=== PATIENT | male | born 1960 | race Caucasian/White ===

== ENCOUNTER 2017-10-06 09:42 | Inpatient (IN) | payer OTHER ==
[~2017-10-06] VITALS: Ht 2377 cm; Wt 61.7 kg
--- NOTE | ~2017-10-06 | PR ---
[place], [place] PROGRESS NOTE NAME: PORSHA WIN UNIT #: [id number] ROOM: 310 DOCTOR: AUGUSTUS CARRILLO MD BIRTHDATE: [birth year] DOS: 10/08/2017 CHIEF COMPLAINT: "Oh doctor, Thanks for stopping, I need to talk to the social director." SUMMARY OF THE VISIT: The patient was interviewed as he was resting quietly in bed. He did awake and engage with me in conversation that was appropriate. He reports that he slept much better last night with the meds were working for him as they had been previously. He did get up and have breakfast and is now resting again, stating that he is still experiencing ongoing auditory hallucinations, but they seem to be dissipating. He reports tolerating the medication well. MENTAL STATUS: He is alert and oriented. Mood does seem to be still somewhat depressed and he is preoccupied, but he is able to carry on a reasonable conversation. He is fairly bright and pleasant for the most part. There was no teena or hypomania. There was no gross psychosis in the sense that I did not see him responding to unforeseen others. Memory has mild gaps, but for the most part, he is intact. PLAN: I will go ahead and increase the Latuda from 80 mg at bedtime to 120 mg at bedtime, maintaining the other psychotropics, continue to engage in individual and rivera milieu activity with the plan to return to the least restrictive environment when stable. AUGUSTUS CARRILLO MD CM:PNTRANS 46 AUGUSTUS CARRILLO MD 10/08/172045 interface
--- NOTE | ~2017-10-06 | DS ---
[place], [place] DISCHARGE SUMMARY NAME: PORSHA WIN UNIT #: [id number] ROOM: 310 DOCTOR: AUGUSTUS CARRILLO MD BIRTHDATE: [birth year] DOS: 10/11/2017 CHIEF COMPLAINT: "The voices are just getting so bad for me, but I need to make certain someone gets on the computer Tuesday for me." HISTORY OF PRESENT ILLNESS: This is a 57-year-old black male who was sent from [facility] emergency room on an involuntary basis. He had been brought there because of increased psychosis that included auditory hallucinations and gross psychotic symptomatology. He did test positive for cocaine while at [facility] and was very agitated and labile there as well as being very disorganized in his thinking. Because he was so disjointed and fragmented, it was felt that an inpatient restabilization was warranted and he was sent to the [facility] for further crisis stabilization to rule out further organic factors, to engage in individual and rivera milieu activity, returning to the least restrictive environment when stable. PAST MEDICAL HISTORY: Remarkable for GERD, left ventricular hypertrophy, schizoaffective disorder, benzodiazepine abuse, cocaine abuse, nicotine abuse. SOCIAL HISTORY: The patient does not drink alcohol per his report. PAST MEDICAL HISTORY: Remarkable for multiple previous psychiatric admissions. He is followed at [facility]. STRENGTHS: He is ambulatory, good verbal skills and a supportive living environment. SUMMARY OF HOSPITAL COURSE: The patient was admitted to the unit where he had his Seroquel discontinued in lieu of Latuda 40 mg at bedtime, Remeron 15 mg at bedtime was added to help him sleep and combat the depressive symptomatology. Routine screening examination showed him to have a low vitamin D level of 17.5, so his vitamin D replacement 50,000 international units was ordered. Gradually, the Latuda dose was increased from 40 to 80 and then to 120. He did request that his temazepam be restarted, which was. With this combination of medicine, the patient improved greatly. He was sleeping through the night, engaging in ADLs, engaging in individual and group activities. He reported no side effects from the medications and voiced positive plans for the future. The patient was discharged then back home on October 11, to have followup with [facility]. MENTAL STATUS AT DISCHARGE: The patient is alert and oriented. Mood does seem to be strongly trending towards euthymia. Affect is more appropriate. There is no teena or hypomania. There is no suicidal, homicidal, or self-injurious behavior. Memory for the most part is intact. FINAL DIAGNOSIS: Schizoaffective disorder. PLAN: All of his prescriptions have been sent with him. He will have followup at [facility]. [place], [place] DISCHARGE SUMMARY NAME: PORSHA WIN UNIT #: [id number] ROOM: 310 DOCTOR: AUGUSTUS CARRILLO MD BIRTHDATE: [birth year] AUGUSTUS CARRILLO MD CM:DISCHARG [phone] AUGUSTUS CARRILLO MD 10/20/17 0817 interface
--- NOTE | ~2017-10-06 | PR ---
[place], [place] PROGRESS NOTE NAME: PORSHA WIN UNIT #: [id number] ROOM: 310 DOCTOR: CHAI MONROE DO BIRTHDATE: [birth year] DOS: 10/10/2017 CHIEF COMPLAINT: "I slept well." SUMMARY OF VISIT: The patient is a 57-year-old -Chinese male who was sent from [facility] to be admitted to the [facility] on involuntary basis. He was admitted due to increased auditory hallucinations and gross psychotic symptomology. Patient today was interviewed in the hallway. His speech was not as disorganized as compared to Tuesday10/07/2017. The patient has continued to show signs of anxiety and paranoia, particularly revolving around snack time. He has been noted to be experiencing auditory hallucinations. He does report improvement in his sleep and appetite, reports feeling better. He was able to get assistance with filing the required paperwork for his unemployment over the weekend. The patient continues to be pleasant and readily engages in conversation. MENTAL STATUS EXAMINATION: The patient is alert and oriented to self. Mood is trending towards euthymia. Affect is more appropriate. The patient continues to show signs of experiencing auditory hallucinations. Short and long-term memory are mostly intact. The patient is cooperative, however, he continues to have episodes of anxious overtones and paranoia. PLAN: 1. We have started the patient on Vistaril 25 mg t.i.d. 2. The patient yesterday was complaining of constipation. He complained of this again this morning. The patient was started on MiraLax 17 grams b.i.d. by the Internal hospitalist team. We will continue this treatment. 3. The patient signed the consent form in order to extend inpatient treatment as he was originally pink slipped to the [facility]. 4. Disposition. The patient is likely to be discharged either Tuesday10/11/2017 or Tuesday10/12/2017 depending on medical and psychiatric status at that time. Until then, we will continue his current psychotropic regimen and encourage the patient to engage in individual and word milieu activity, returning to the least restrictive environment when psychiatrically stable. Chai Austyn, DO [place], [place] PROGRESS NOTE NAME: QUIRINOPORSHA UNIT #: [id number] ROOM: 310 DOCTOR: CHAI MONROE DO BIRTHDATE: [birth year] AUGUSTUS CARRILLO MD CM:SANDRA [id number] CHAI MONROE DO 10/10/171926 interface
--- NOTE | ~2017-10-06 | PR ---
[place], [place] PROGRESS NOTE NAME: PORSHA WIN UNIT #: [id number] ROOM: 310 DOCTOR: AUGUSTUS ELKINS MD BIRTHDATE: [birth year] DOS: 10/09/2017 CHIEF COMPLAINT: "Oh Dr. Elkins, I am doing better. I just need someone to get on the computer for me." SUMMARY OF THE VISIT: The patient was interviewed as he sat eating his breakfast with peers. He stopped and engaged readily in conversation. He reports that he is sleeping better, eating better, and is feeling much better than he had upon admission. His biggest concern is being able to get on the computer to do his unemployment work. MENTAL STATUS: He is alert and oriented. Mood does seem to be strongly trending towards euthymia. Affect is more appropriate. There is no teena or hypomania. There are no gross psychotic symptoms. Short, intermediate, and long-term memory are relatively intact. PLAN: I will maintain his current psychotropic regimen, monitor and support, engage in individual and rivera milieu activity, returning to the least restrictive environment when stable. AUGUSTUS ELKINS MD CM:PNTRANS [id number] AUGUSTUS ELKINS MD 10/09/17 1252 interface
--- NOTE | ~2017-10-06 | WRIGHTHP ---
[place], [place] PATIENT HISTORY AND PHYSICAL EXAM NAME: PORSHA WIN UNIT #: [id number] ROOM: 310 DOCTOR: AUGUSTUS CARRILLO MD BIRTHDATE: [birth year] DOS: 10/07/2017 CHIEF COMPLAINT: "The voices were just getting so bad for me, but I need to make certain someone gets on the computer on Tuesday for me." SUMMARY OF THE VISIT: This is a 57-year-old black male who was sent from [facility] emergency room on an involuntary basis. He had been brought there because of increased auditory hallucinations and gross psychotic symptomatology. The patient tested positive for cocaine while at [facility] and was found to be very agitated and labile there and very disorganized. Because of his gross psychotic state, it was felt that the patient would benefit from an inpatient stay to re-stabilize on medication. PAST MEDICAL HISTORY: Remarkable for GERD, left ventricular hypertrophy and a long history of schizophrenia or schizoaffective disorder. He also has a history of benzodiazepine abuse, cocaine abuse, tobacco abuse. He does not drink alcohol. PAST PSYCHIATRIC HISTORY: Remarkable for multiple previous admissions as well as being followed at [facility] in [place] formally known as [facility]. STRENGTHS: He is ambulatory, has good verbal skills and a supportive environment to live in. MENTAL STATUS: He is alert and oriented with some time gaps, but overall pretty intact. He is rather hyper and very pressured in his speech, but interruptible. He does jump from topic to topic and repeats himself frequently. He does endorse positive hallucinations and some delusions. Memory for the most part is intact. DIAGNOSIS: Schizoaffective disorder. PLAN: I have discontinued his Seroquel that he reports having been on for years given the fact that he has been compliant and it was ineffective. I have started him on Latuda 40 mg at nighttime. I will increase this to 80 mg at bedtime. I will also add Remeron 15 mg at bedtime to help with the affect component and try to stimulate his appetite as well as aid sleep. He reports having chronic insomnia and reports at least a 3-year history of being on Restoril 30 mg at bedtime. I will go ahead and restart that. I may convert it ultimately to p.r.n. later if the Remeron is successful at aiding his sleep. Routine screening examination showed him to have a vitamin D level that is low at 17.5. I will replace with vitamin D 50,000 international units q. week. We will also order him Boost to supplement his nutritional status. Engage in individual and rivera milieu activity, returning then to the least restrictive environment when psychiatrically stable. [place], [place] PATIENT HISTORY AND PHYSICAL EXAM NAME: PORSHA WIN UNIT #: [id number] ROOM: 310 DOCTOR: AUGUSTUS CARRILLO MD BIRTHDATE: [birth year] AUGUSTUS CARRILLO MD CM:HISPHYS:PATIENT HISTORY AND PHYSICAL EXAMINATION [id number] AUGUSTUS CARRILLO MD 10/20/17 0821 interface
[2017-10-06] MEDS ORDERED: RESTORIL30 M1 PO (10:01)
[2017-10-06] MEDS ORDERED: SEROQUEL XR400 MG PO (10:01)
[2017-10-06] MEDS ORDERED: ACETAMINOPHEN325 M2 PO (10:53)
[2017-10-06 17:52] VITALS: BP 130/78
[2017-10-06 17:57] VITALS: BP 130/78
[2017-10-06 20:17] VITALS: BP 130/78
[2017-10-07 07:03] LABS: BASO % 0.7 % (0.0-1.0); EOS % 0.7 % (1.0-4.0); HEMATOCRIT 46.5 % (42.0-52.0); HEMOGLOBIN 15.9 g/dl (14.0-18.0); LYMPH # 1.7 10*3/uL (1.3-4.4); LYMPH % 38.5 % (27.0-41.0); MEAN CELL VOLUME 96.7 fl (80.0-94.0); MEAN CORPUSCULAR HGB 33.1 pg (27.0-31.0); MEAN CORPUSCULAR HGB CONC 34.2 g/dl (33.0-37.0); MEAN PLATELET VOLUME 9.9 fl (9.6-12.3); MONO # 0.6 10*3/uL (0.1-1.0); MONO % 14.2 % (3.0-9.0); NEUT % 45.7 % (47.0-73.0); PLATELET COUNT AUTOMATED 252 10*3/uL (130-400); RED BLOOD COUNT 4.81 10*6/uL (4.50-5.90); RED CELL DISTRI WIDTH 12.7 % (0-14.5); WHITE BLOOD COUNT 4.3 10*3/uL (4.8-10.8)
[2017-10-07 07:47] LABS: CHLORIDE 103 mmol/L (98-107); POTASSIUM 3.6 mmol/L (3.5-5.1); SODIUM 140 mmol/L (136-145)
[2017-10-07 07:51] VITALS: BP 121/67
[2017-10-07 08:02] LABS: ALBUMIN 4.1 gm/dl (3.1-4.5); ALKALINE PHOSPHATASE 41 U/L (45-117); BUN 14 mg/dl (7-24); CHOLESTEROL 131 mg/dL (<200); HDL CHOLESTEROL 67 mg/dl (40-60); LDL CHOLESTEROL 49 mg/dL (9-159); SGOT/AST 33 IU/L (3-35); SGPT/ALT 35 U/L (12-78); THYROID STIM HORMONE (HS) 0.978 uIU/ml (0.358-4.75); TOTAL PROTEIN 8.5 gm/dL (6.4-8.2); TRIGLYCERIDES 77 mg/dl (<150); VLDL CHOLESTEROL 15 mg/dL (6-40)
[2017-10-07 08:06] LABS: VITAMIN D, 25-HYDROXY 17.5 ng/mL (30-100)
[2017-10-07 20:04] VITALS: BP 120/78
[2017-10-08 08:03] VITALS: BP 115/65
[2017-10-08 20:00] VITALS: BP 109/70
[2017-10-09 07:52] VITALS: BP 109/64
[2017-10-09 20:00] VITALS: BP 108/67
[2017-10-10 07:33] VITALS: BP 103/65
[2017-10-10 20:02] VITALS: BP 102/64
[2017-10-11 07:38] VITALS: BP 110/68
[2017-10-11] MEDS ORDERED: LATU120T PO (08:51)
[2017-10-11] MEDS ORDERED: MIRTAZAPINE15 M2 PO (08:51)
[2017-10-11] MEDS ORDERED: HYDROXYZINE PAM25 M1 PO (08:51)
== END 2017-10-11 14:47 | disposition home or self-care (01) | DRG 885 ==
LOC: 3N 09:42
PROVIDERS: Psychiatry & Neurology Psychiatry
DX: F25.9 Schizoaffective disorder, unspecified (principal); F23 Brief psychotic disorder; F13.10 Sedative, hypnotic or anxiolytic abuse, uncomplicated; F14.10 Cocaine abuse, uncomplicated; K21.9 Gastro-esophageal reflux disease without esophagitis; F41.9 Anxiety disorder, unspecified; Z72.0 Tobacco use; Z79.899 Other long term (current) drug therapy

== ENCOUNTER 2017-11-10 08:32 | Inpatient (IN) | payer OTHER ==
[~2017-11-10] VITALS: Ht 185.4 cm; Wt 57.2 kg
--- NOTE | ~2017-11-10 | PR ---
[place], [place] PROGRESS NOTE NAME: PORSHA WIN UNIT #: [id number] ROOM: 314 DOCTOR: AUGUSTUS CARRILLO MD BIRTHDATE: [birth year] DOS: 11/12/2017 INTERVAL NOTE CHIEF COMPLAINT: "I slept because of the temazepam. I have a belly ache though." SUMMARY OF THE VISIT: The patient was resting quietly in his bed. He engaged readily in conversation. He does report he is feeling better with the new medicine adjustments and did sleep better. He is complaining that his belly hurts. I could not pin him down as to whether it was actually his stomach were more of band-like pain, given his history of polysubstance abuse. I am suspicious of possible pancreatitis, chronic in nature. MENTAL STATUS: He is alert and oriented. Mood does seem to be trending towards euthymia. Affect is more appropriate. There is no teena, hypomania, or gross psychosis. Memory is intact. PLAN: His vitamin B12 level is low normal at 287. So I will utilize vitamin B12 injection 1000 mcg IM monthly, vitamin D level is low at 21.6, so I will treat him with vitamin D 50,000 International Units weekly. For precautionary sake, I will check a serum amylase and lipase. Engage in individual and rivera milieu activity, returning to the least restrictive environment when stable. AUGUSTUS CARRILLO MD CM:PNTRANS [phone] AUGUSTUS CARRILLO MD 11/13/17 0203 interface
--- NOTE | ~2017-11-10 | WRIGHTHP ---
[place], [place] PATIENT HISTORY AND PHYSICAL EXAM NAME: PORSHA WIN UNIT #: [id number] ROOM: 314 DOCTOR: AUGUSTUS CARRILLO MD BIRTHDATE: [birth year] DOS: 11/11/2017 INITIAL PSYCHIATRIC EVALUATION CHIEF COMPLAINT: "The voices were telling me to hurt myself again." HISTORY OF PRESENT ILLNESS: This is a 57-year-old black male who was readmitted to the [facility]. He was sent here on an involuntary basis from [facility] Emergency Room. The patient had presented there acutely depressed and suicidal, stating that he is having command auditory hallucinations telling him to walk into traffic to kill himself. The patient has also relapsed on crack cocaine and has been abusing benzodiazepines. He reports poor sleep and appetite with a significant weight loss, marked anergia, anhedonia, hopeless and helpless feelings, and inability to cope. He is admitted now to rule out organic factors, to stabilize on medication, returning to the least restrictive environment when stable. PAST MEDICAL HISTORY: Remarkable for left ventricular hypertrophy and GERD. SOCIAL HISTORY: He also has a history of benzodiazepine abuse, cocaine abuse, tobacco abuse. He does not drink alcohol. ALLERGIES: He has no known allergies. STRENGTHS: Good verbal skills and ambulatory. WEAKNESSES: Significant drug abuse, poor coping skills. MENTAL STATUS: He is alert and oriented. Mood does seem to be somewhat depressed with anxious overtones. He endorses significant psychosis, command auditory hallucinations. The voices tell him to do bad things. He does feel safe here, however. He does endorse suicidal thoughts, but no plan. Memory for the most part is intact. DIAGNOSIS: Schizoaffective disorder. PLAN: I have already restarted him on Latuda 40 mg at bedtime, I will increase this to 80 mg at bedtime. The patient states he takes Restoril chronically; I will go ahead and order that for him here, but not order it post-discharge. We will engage in individual and rivera milieu activity, returning then to the least restrictive environment when psychiatrically stable. [place], [place] PATIENT HISTORY AND PHYSICAL EXAM NAME: PORSHA WIN UNIT #: [id number] ROOM: 314 DOCTOR: AUGUSTUS CARRILLO MD BIRTHDATE: [birth year] AUGUSTUS CARRILLO MD CM:NICHOLAS:PATIENT HISTORY AND PHYSICAL EXAMINATION [phone] AUGUSTUS CARRILLO MD 11/11/17 1102 interface
--- NOTE | ~2017-11-10 | DS ---
[place], [place] DISCHARGE SUMMARY [id number] UNIT #: [id number] ROOM: 312 DOCTOR: AUGUSTUS CARRILLO MD BIRTHDATE: [birth year] DOS: 11/17/2017 CHIEF COMPLAINT: "The voices are telling me to hurt myself again." HISTORY OF PRESENT ILLNESS: This is a 57-year-old black male who was readmitted to the [facility], sent here on an involuntary basis from [facility] Emergency Room. The patient presented there acutely depressed and suicidal, stating that he was experiencing command auditory hallucinations telling him to walk into traffic to kill himself. The patient also recently relapsed on crack cocaine and has been abusing benzodiazepines on the streets. He reports poor sleep and appetite with a significant weight loss, marked anergia, anhedonia, hopeless and helpless feelings, and inability to cope. He is readmitted to rule out any further organic factors, to stabilize on medication, to engage in individual and rivera milieu activity, returning to the least restrictive environment when stable. PAST MEDICAL HISTORY: Remarkable for left ventricular hypertrophy and GERD. SUMMARY OF THE HOSPITAL COURSE: The patient was admitted to the unit where he was restarted on Latuda 40 mg at bedtime. This was rapidly increased to its target dose of 80 mg at bedtime. The patient was prescribed Restoril while he was here in the hospital and also Remeron 15 mg at bedtime was utilized as an antidepressant, hydroxyzine 50 mg 3 times daily was restarted as a nonaddicting antianxiety agent. The patient improved once he was back on these medications. Sleep and appetite normalized. He voiced positive plans for the future. The command auditory hallucinations dissipated completely. There were no further suicidal thoughts, homicidal thoughts or any self-injurious thoughts. There also were no extrapyramidal symptoms, tardive dyskinesia, sedation or somnolence. MENTAL STATUS AT DISCHARGE: The patient was alert and oriented x 3. Mood was euthymic. Affect appropriate. There is no teena or hypomania. There are no suicidal thoughts. Memory for the most part was fully intact. DIAGNOSIS AT DISCHARGE: Schizoaffective disorder. PLAN: All of his prescriptions except the Restoril were e-scribed to his pharmacy. He will have followup in the community. He is medically and psychiatrically stable and his biopsychosocial needs were adequately being met by the community at large. [place], [place] DISCHARGE SUMMARY NAME: PORSHA WIN UNIT #: [id number] ROOM: 312 DOCTOR: AUGUSTUS CARRILLO MD BIRTHDATE: [birth year] AUGUSTUS CARRILLO MD CM:DISCHJONATHON [id number] AUGUSTUS CARRILLO MD 11/17/17 0945 interface
--- NOTE | ~2017-11-10 | PR ---
[place], [place] PROGRESS NOTE NAME: PORSHA WIN UNIT #: [id number] ROOM: 312 DOCTOR: AUGUSTUS ELKINS MD BIRTHDATE: [birth year] DOS: 11/16/2017 INTERVAL NOTE CHIEF COMPLAINT: "Oh Dr. Elkins, I am feeling better, will I have a ride to get home tomorrow." SUMMARY OF THE VISIT: The patient was interviewed as he was working on a craft in the activity area. He engaged in conversation readily and reports that he is sleeping well, eating well. He is tolerating the medicines well and feels that the voices have subsided and he is ready for discharge. He was just concerned whether or not he would have a ride home or not. When I told him that all should be taken care of, he nodded in approval and thanked me once again. MENTAL STATUS: He is alert and oriented with some time gaps, but overall fairly intact. Mood is strongly trending towards euthymia. Affect is more appropriate. There is no teena, hypomania or gross psychosis. Memory is intact. PLAN: I will maintain his current psychotropic, engage in individual and rivera milieu activity with the plan to return to the least restrictive environment when psychiatrically stable. AUGUSTUS ELKINS MD CM:PNTRANS [phone] [id number] AUGUSTUS ELKINS MD 11/16/172056 interface
--- NOTE | ~2017-11-10 | PR ---
[place], [place] PROGRESS NOTE NAME: PORSHA WIN UNIT #: [id number] ROOM: 314 DOCTOR: AUGUSTUS ELKINS MD BIRTHDATE: [birth year] DOS: 11/13/2017 CHIEF COMPLAINT: "I feel better Dr. Elkins, thank you." SUMMARY OF THE VISIT: The patient was interviewed as he was resting quietly in bed. He engaged readily in conversation. He reports that he is feeling better both physically and mentally today. He notes that he slept better, was wondering why he got the shot and I did educate him it was regarding a low vitamin B12 level. Otherwise, he states that the medicines are agreeing with him and he is noting no other side effects. MENTAL STATUS: He is alert and oriented. Mood does seem to be trending solidly towards euthymia. Affect is more appropriate. There is no teena, hypomania or gross psychosis. Short, intermediate, and long-term memory are intact. PLAN: I will maintain his current psychotropic regimen, engage in individual and rivera milieu activity, returning to the least restrictive environment when psychiatrically stable. AUGUSTUS ELKINS MD CM:PNTRANS [phone] AUGUSTUS ELKINS MD 11/13/17 2314 interface
--- NOTE | ~2017-11-10 | PR ---
[place], [place] PROGRESS NOTE NAME: PORSHA WIN UNIT #: [id number] ROOM: 314 DOCTOR: AUGUSTUS ELKINS MD BIRTHDATE: [birth year] DOS: 11/15/2017 CHIEF COMPLAINT: "Thank you for coming, Dr. Elkins." SUMMARY OF THE VISIT: The patient was interviewed as he was eating his breakfast. He stopped and engaged readily in conversation. He reports that he is feeling better. His sleep has improved. His appetite has improved and he feels like the medicines are working. He convincingly denies sedation, somnolence, extrapyramidal symptoms or tardive dyskinesia. He does feel that within the next couple of days, he will be ready to return back to his home in the [place], [place] area. MENTAL STATUS: He is alert and oriented. Mood does seem to be strongly trending towards euthymia. Affect is much more appropriate. There is no teena or hypomania. I see no gross psychotic symptoms. No auditory or visual hallucinations are present. No delusions, no paranoia. Memory for the most part is intact. PLAN: I will maintain his current psychotropic regimen, continue to engage in individual and rivera milieu activity, plan to discharge then when psychiatrically stable. AUGUSTUS ELKINS MD CM:PNTRANS [phone] AUGUSTUS ELKINS MD 11/15/17 0914 interface
--- NOTE | ~2017-11-10 | PR ---
[place], [place] PROGRESS NOTE NAME: PORSHA WIN UNIT #: [id number] ROOM: 314 DOCTOR: AUGUSTUS ELKINS MD BIRTHDATE: [birth year] DOS: 11/14/2017 CHIEF COMPLAINT: "I feel much better physically and mentally Dr. Elkins." SUMMARY OF THE VISIT: The patient was interviewed as he was eating his breakfast. He reports that he is feeling much better both mentally and physically. He states that the upset stomach that was bothering him through the weekend seems to have dissipated and he feels that his mood is gradually and significantly trending towards euthymia. He is sleeping better, eating better, and is feeling more positive. He convincingly denies any medication side effects. He is not somnolent or sedate and there are no extrapyramidal symptoms or tardive dyskinesia. MENTAL STATUS EXAMINATION: He is alert and oriented. Mood does seem to be strongly trending towards euthymia. Affect is much more appropriate. There is no teena, hypomania or gross psychosis. Short, intermediate, and long-term memory are intact. PLAN: I will go ahead and discontinue his p.r.n. Ativan. Given the fact that he does seem to utilize meds at an increased rate, I will try to limit what is offered him. He is on Vistaril for the anxiety as well as the Latuda and the Remeron. At this point, I think this is a good combination and I see no side effects from these medicines at this point. We will continue to engage in individual and rivera milieu activity. Finalize discharge plans and then discharge when psychiatrically stable. AUGUSTUS ELKINS MD CM:PNTRANS [phone] AUGUSTUS ELKINS MD 11/14/17 2005 interface
[~2017-11-10 08:32] MED LIST: ACETAMINOPHEN325 M2 PO; HYDROXYZINE PAM25 M1 PO; LATU120T PO; MIRTAZAPINE15 M2 PO; RESTORIL30 M1 PO; SEROQUEL XR400 MG PO
[2017-11-10] MEDS ORDERED: SEROQUEL400 M1 PO (09:25)
[2017-11-10 15:03] VITALS: BP 123/79
[2017-11-10 17:13] LABS: BILIRUBIN NEGATIVE (NEGATIVE); BLOOD NEGATIVE (NEGATIVE); CLARITY CLEAR (CLEAR); COLOR YELLOW (YELLOW); GLUCOSE NEGATIVE (NEGATIVE); KETONE TRACE (NEGATIVE); LEUKO ESTERASE NEGATIVE (NEGATIVE); NITRITE NEGATIVE (NEGATIVE); UROBILINOGEN 0.2 E.U./dl (0.2-1.0)
[2017-11-10 17:25] LABS: URINE AMPHETAMINES < 1000 (1000ng/ml); URINE BARBITURATES < 200 (200ng/ml); URINE BENZODIAZEPINES < 200 (200ng/ml); URINE CANNABINOIDS (THC) < 50 (50ng/ml); URINE COCAINE > 300 (300ng/ml); URINE METHADONE < 300 (300ng/ml); URINE OPIATES < 300 (300ng/ml); URINE PHENCYCLIDINE < 25 (25ng/ml)
[2017-11-10 17:30] LABS: BACTERIA TRACE; EPITHELIAL CELLS 0-2; RBC 0-2 rbc/hpf (0-2); WBC 0-2 wbc/hpf (0-5)
[2017-11-10 20:00] VITALS: BP 116/68
[2017-11-11 07:30] LABS: BASO % 0.5 % (0.0-1.0); EOS # 0.1 10*3/uL (0.0-0.4); EOS % 1.9 % (1.0-4.0); HEMATOCRIT 44.9 % (42.0-52.0); LYMPH # 1.6 10*3/uL (1.3-4.4); LYMPH % 42.2 % (27.0-41.0); MEAN CELL VOLUME 96.4 fl (80.0-94.0); MEAN CORPUSCULAR HGB 32.2 pg (27.0-31.0); MEAN CORPUSCULAR HGB CONC 33.4 g/dl (33.0-37.0); MEAN PLATELET VOLUME 9.7 fl (9.6-12.3); MONO # 0.6 10*3/uL (0.1-1.0); MONO % 14.6 % (3.0-9.0); NEUT # 1.5 10*3/uL (2.3-7.9); NEUT % 40.5 % (47.0-73.0); PLATELET COUNT AUTOMATED 241 10*3/uL (130-400); RED BLOOD COUNT 4.66 10*6/uL (4.50-5.90); RED CELL DISTRI WIDTH 12.6 % (0-14.5); WHITE BLOOD COUNT 3.8 10*3/uL (4.8-10.8)
[2017-11-11 07:36] VITALS: BP 135/73; BP 148/70
[2017-11-11 07:59] LABS: ALBUMIN 3.3 gm/dl (3.1-4.5); ALKALINE PHOSPHATASE 40 U/L (45-117); BUN 11 mg/dl (7-24); CHLORIDE 109 mmol/L (98-107); CHOLESTEROL 134 mg/dL (<200); HDL CHOLESTEROL 65 mg/dl (40-60); LDL CHOLESTEROL 55 mg/dL (9-159); POTASSIUM 3.7 mmol/L (3.5-5.1); SGOT/AST 23 IU/L (3-35); SGPT/ALT 39 U/L (12-78); SODIUM 141 mmol/L (136-145); TOTAL PROTEIN 7.5 gm/dL (6.4-8.2); TRIGLYCERIDES 70 mg/dl (<150); VLDL CHOLESTEROL 14 mg/dL (6-40)
[2017-11-11 08:50] LABS: VITAMIN D, 25-HYDROXY 21.6 ng/mL (30-100)
[2017-11-11 19:53] VITALS: BP 114/70
[2017-11-12 07:26] VITALS: BP 120/72
[2017-11-12 11:40] LABS: LIPASE 112 U/L (73-393)
[2017-11-12 20:00] VITALS: BP 115/74
[2017-11-13 07:28] VITALS: BP 119/76
[2017-11-13 19:07] VITALS: BP 123/63
[2017-11-14 07:56] VITALS: BP 140/78
[2017-11-14 19:43] VITALS: BP 114/76
[2017-11-15 07:34] VITALS: BP 121/65
[2017-11-15 20:06] VITALS: BP 103/62
[2017-11-16 07:59] VITALS: BP 118/72
[2017-11-16] MEDS ORDERED: Vitamin D PO (11:22)
[2017-11-16] MEDS ORDERED: B121000 MCG/1 IM (11:22)
[2017-11-16] MEDS ORDERED: MIRTAZAPINE15 M2 PO (11:22)
[2017-11-16] MEDS ORDERED: ATARAX,VISTARIL50 MG PO (11:22)
[2017-11-16] MEDS ORDERED: LATU80TA PO (11:22)
[2017-11-16 19:04] VITALS: BP 107/65
[2017-11-17 07:53] VITALS: BP 129/69
== END 2017-11-17 11:36 | disposition home or self-care (01) | DRG 885 ==
LOC: 3N 08:32
PROVIDERS: Psychiatry & Neurology Psychiatry
DX: F25.9 Schizoaffective disorder, unspecified (principal); F23 Brief psychotic disorder; R45.851 Suicidal ideations; Z68.1 Body mass index [BMI] 19.9 or less, adult; F13.10 Sedative, hypnotic or anxiolytic abuse, uncomplicated; F14.10 Cocaine abuse, uncomplicated; R63.6 Underweight; K21.9 Gastro-esophageal reflux disease without esophagitis; F32.9 Major depressive disorder, single episode, unspecified; I51.7 Cardiomegaly; F41.9 Anxiety disorder, unspecified; Z72.0 Tobacco use; Z79.899 Other long term (current) drug therapy